=== PATIENT | female | born 1945 | race Caucasian/White ===

== ENCOUNTER 2023-10-07 14:48 | Emergency (ER) | payer MEDICARE ==
[~2023-10-07] VITALS: Ht 157.5 cm; Wt 72.6 kg
[~2023-10-07 14:48] MED LIST: ACIDOPHILUS PR1 EACH PO; AMLO5 PO; ARTHRITIS PAIN650 MG PO; ASPI81EC PO; ATEN50 PO; Aspir 8181 MG PO; BENA20 PO; CALCA400CH; CALCAVITDA PO; CARV6.25 PO; CHOL10002 PO; CRESTOR PO; Crestor20 MG PO; EVENING PRIMROSE PO; FISH OIL 1,0001 EAC1 PO; FISH1000 PO; FLAX PO; LEVO-T112 MCG PO; LEVSOD112 PO; MEGARED OMEGA-1 EAC1 PO; MULVITMIND PO; Melatonin1 MG/4 ML; Multiple Vitam1 EACH PO; NEXIUM PO; OMEP20ER PO; PANT40 PO; VITAMIN D31000 UNIT PO; ZYRTEC10 M1 PO; [UNRECOGNIZED DRUG - OTHER] PO
[2023-10-07 16:10] LABS: BASOPHILS ABSOLUTE AUTO 0.05 K/mm3 (0.00-0.23); BASOPHILS PERCENT AUTO 1 % (0-2); EOSINOPHILS ABSOLUTE AUTO 0.13 K/mm3 (0.00-0.68); EOSINOPHILS PERCENT AUTO 2 % (0-6); Hematocrit 41.6 % (33.0-51.0); Hemoglobin 13.8 g/dL (11.5-16.0); IMMATURE GRAN ABSOLUTE AUTO 0.01 K/mm3 (0.00-0.10); IMMATURE GRAN PERCENT AUTO 0 % (0-1); LYMPHOCYTES PERCENT AUTO 42 % (21-46); MONOCYTES ABSOLUTE AUTO 0.46 K/mm3 (0.16-1.47); MONOCYTES PERCENT AUTO 9 % (4-13); Mean Corpuscular HGB 29.7 pg (26.0-34.0); Mean Corpuscular HGB Conc 33.2 g/dL (31.5-36.5); Mean Corpuscular Volume 90 fL (80-100); Mean Platelet Volume 9.3 fL (9.1-12.4); NEUTROPHILS ABSOLUTE AUTO 2.47 K/mm3 (1.96-9.15); NEUTROPHILS PERCENT AUTO 46 % (41-73); Platelet Count 253 K/mm3 (150-400); RDW Coefficient Variation 13.1 % (11.7-14.2); RDW Standard Deviation 42.5 fL (35.1-46.3); Red Blood Cell Count 4.64 M/mm3 (3.80-5.20); White Blood Cell Count 5.42 K/mm3 (4.00-11.30)
[2023-10-07 16:38] LABS: Albumin, Blood 3.8 g/dL (3.4-5.0); Bilirubin, Total 0.3 mg/dL (0.1-1.0); Bun/Creatinine Ratio 15.4 (12.0-20.0); Calcium, Blood 8.8 mg/dL (8.5-10.1); Creatinine, Blood 0.84 mg/dL (0.40-1.00); Potassium, Blood 3.9 mmol/L (3.5-5.5); Total Protein, Blood 7.8 g/dL (6.4-8.2)
[2023-10-07 17:25] VITALS: BP 123/62
== END 2023-10-07 17:46 | disposition home or self-care (01) ==
LOC: ER 14:48
PROVIDERS: Physician Assistant
DX: R55 Syncope and collapse (principal); I10 Essential (primary) hypertension; Z87.891 Personal history of nicotine dependence; Z79.899 Other long term (current) drug therapy; Z88.0 Allergy status to penicillin; Z88.2 Allergy status to sulfonamides; Z91.011 Allergy to milk products; Z88.1 Allergy status to other antibiotic agents; Z88.8 Allergy status to other drugs, medicaments and biological substances
CPT/HCPCS: 80053; 85025; 93005; 93010; 99284-25

== ENCOUNTER 2025-06-22 09:56 | Day surgery (SDC) | payer MEDICARE | END 2025-06-22 23:00 | disposition home or self-care (01) | LOC: MOI US 09:56 | DX: C50.511 Malignant neoplasm of lower-outer quadrant of right female breast (principal) | CPT/HCPCS: 19285; 77065; A4648 ==

== ENCOUNTER 2025-06-28 11:32 | Day surgery (SDC) | payer MEDICARE ==
[~2025-06-28 11:32] MED LIST changes: +Bupivacaine 0.5% W/EPI 1:200000 SDV 30 ML Vial ONE
[2025-06-28] MEDS ORDERED: CeFAZolin Sodium 2,000 MG VIAL ONE (12:05)
[2025-06-28] MEDS ORDERED: ZOCOR20 MG PO (12:20)
[2025-06-28] MEDS ORDERED: METF500 PO (12:21)
[2025-06-28] MEDS ORDERED: CRANBERRY (12:23)
[2025-06-28] MEDS ORDERED: VITAMIN D (12:23)
[2025-06-28] MEDS ORDERED: Ondansetron HCl 2 MG / ML 2ML Vial ONE (12:25)
[2025-06-28] MEDS ORDERED: FentaNYL Citrate 50 MCG/ML 2 ML Injection ONE ×2 (12:25→14:14)
[2025-06-28] MEDS ORDERED: Dexamethasone Sod Phos 10 MG/ML 1ML VIAL ONE (12:25)
[2025-06-28] MEDS ORDERED: ePHEDrine Sulfate 50 MG/ML 1ML Injection ONE (13:16)
--- NOTE | 2025-06-28 13:55 | NUR ---
06/28/25 1355 Yojana Lima PER RADIOLOGY, SPECIMEN SENT "OKAY." DR BA AWARE, IMAGES SEEN ON PACS AND VERIFIED BY SURGEON.
[2025-06-28] MEDS ORDERED: Ketorolac Tromethamine 30mg Vial ONE (14:28)
[2025-06-28] MEDS ORDERED: HYDROcodone 5-APAP 325 TAB ONE (15:11)
--- NOTE | 2025-06-28 15:13 | NUR ---
06/28/25 [facility]3 Mulu Herbert 1452: PATIENT REPORTING PAIN, RNS LOOSENED BREAST BINDER AND PT STATES "THAT FEELS MUCH BETTER" SO PATIENT WAS CHANGED INTO LARGER BREAST BINDER. PATIENT ASSISTED INTO CHAIR. 1458: PATIENT ASSISTED TO DRESS, PATIENT MAKING JOKES AND LAUGHING. ICE PACK NEAR OP SITE, PATIENT SUPPLIED COOKIES AND DRINK. TOLERATING PO FLUIDS.
[2025-06-28 16:00] VITALS: BP 138/71
--- NOTE | 2025-06-28 16:08 | NUR ---
06/28/25 1601 Eric Vital PT INITIALLY YELLING, CRYING, AND COMPLAINING OF PAIN IN PACU. PT STILL COMPLAINING OF PAIN UPON TRANSFER TO SDU BUT APPEARING MORE RELAXED, TALKATIVE, AND OCCASIONALLY MAKING JOKES.
== END 2025-06-28 15:58 | disposition home or self-care (01) ==
LOC: ORSCSDS 11:32
PROVIDERS: Surgery
PROC: 0HBT0ZZ Excision of Right Breast, Open Approach (ICD-10-PCS; principal; 2025-06-28 12:45)
PROC: 07B50ZX Excision of Right Axillary Lymphatic, Open Approach, Diagnostic (ICD-10-PCS; principal; 2025-06-28 12:45)
DX: C50.911 Malignant neoplasm of unspecified site of right female breast (principal); D36.0 Benign neoplasm of lymph nodes; Z17.1 Estrogen receptor negative status [ER-]; Z17.22 Progesterone receptor negative status; Z17.32 Human epidermal growth factor receptor 2 negative status; I10 Essential (primary) hypertension; E11.9 Type 2 diabetes mellitus without complications; E66.9 Obesity, unspecified; Z68.34 Body mass index [BMI] 34.0-34.9, adult; E78.5 Hyperlipidemia, unspecified; E07.9 Disorder of thyroid, unspecified; F03.90 Unspecified dementia, unspecified severity, without behavioral disturbance, psychotic disturbance, mood disturbance, and anxiety; Z79.84 Long term (current) use of oral hypoglycemic drugs; Z79.899 Other long term (current) drug therapy
CPT/HCPCS: 38792; 76098; 82947; 88307; 88341; 88342; A9270; A9520; J0690; J1100; J1885; J2405; J2704; J3010; J7120; Q9968

== ENCOUNTER 2025-07-11 09:00 | Day surgery (SDC) | payer MEDICARE ==
[~2025-07-11] VITALS: Ht 154.9 cm; Wt 83.4 kg
[2025-07-11] VITALS (12 sets, daily range): BP systolic 123–147; BP diastolic 60–78
[~2025-07-11 09:00] MED LIST changes: +Alph-E-Mixed400 UNIT; -Bupivacaine 0.5% W/EPI 1:200000 SDV 30 ML Vial ONE; +CRANBERRY450 M1 PO; +DONEPEZIL HCL10 MG PO; +MELO7.5 PO; +METF500 PO; +THERA-D2000 UNIT PO; +ZOCOR20 MG PO
[2025-07-11] MEDS ORDERED: FentaNYL Citrate 50 MCG/ML 2 ML Injection ONE (09:59)
[2025-07-11] MEDS ORDERED: Sugammadex Sodium 200 MG/2ML SDV (100 MG/ML) ONE (10:04)
--- NOTE | 2025-07-11 10:19 | NUR ---
Ambulatory in Day Surgery. History, Chart, Medications and Allergies reviewed before start of procedure. Lungs clear T/O to Auscultation. Patient confirms NPO status and agrees with scheduled surgery. Pre-Op teaching done. Pt verbalizes understanding. Patient States Post-Procedure ride home has been arranged. Patient reports completing Chlorhexadine shower X2 prior to admission to hospital. Hx dementia. Pt aggitated at times. Spouse at bedside for hx info.
[2025-07-11] MEDS ORDERED: Cefazolin 2000MG/Dextrose,ISO 50 ML IV PRN (10:25)
[2025-07-11] MEDS ORDERED: Bupivacaine 0.5% HCl 5 MG/ML 30MLVIAL ONE (10:25)
[2025-07-11] MEDS ORDERED: CeFAZolin Sodium 2,000 MG in NS 100 ML IV SCH (10:30)
[2025-07-11] MEDS ORDERED: Bupivacaine 0.5% W/EPI 1:200000 SDV 30 ML Vial ONE (10:41)
[2025-07-11] MEDS ORDERED: HydrALAZINE HCl 20 MG / ML 1ML Vial IV PRN (10:45)
[2025-07-11] MEDS ORDERED: FentaNYL Citrate 50 MCG/ML 2 ML Injection IV PRN ×2 (10:45)
[2025-07-11] MEDS ORDERED: HYDROmorphone HCl/Pf 1MG SYR IV PRN ×2 (10:50)
[2025-07-11] MEDS ORDERED: Ondansetron HCl 2 MG / ML 2ML Vial IV PRN (10:50)
[2025-07-11] MEDS ORDERED: Albuterol 2.5 MG/3 ML VIAL INH PRN (10:50)
[2025-07-11] MEDS ORDERED: ePHEDrine Sulfate 50 MG/ML 1ML Injection ONE (10:58)
[2025-07-11] MEDS ORDERED: Dexamethasone Sod Phos 10 MG/ML 1ML VIAL IV ONE (11:34)
[2025-07-11] MEDS ORDERED: Ondansetron HCl 2 MG / ML 2ML Vial IV ONE (11:34)
--- NOTE | 2025-07-11 13:29 | NUR ---
DISCHARGE NOTE PT A&OX4, BREATHING RA, TOLERATING PO INTAKE, NO COMPLAINTS. PT HAS POOR MEMORY BUT ABLE TO COMMUNICATE NEEDS. AT BEDSIDE. PT AMBULATED TO BR C WALKER AND VOIDED. PT DRESSED WITH ASSISTANCE. Discharge instructions reviewed with patient. Patient verbalizes understanding. Copy given to patient to take home. Dressing to procedure site clean, dry, intact with no visible drainage, swelling, erythema or bruising noted. BREAST BINDER IN PLACE. Discharged via wheelchair to private car for ride home.
== END 2025-07-11 13:20 | disposition home or self-care (01) ==
LOC: ORSCMMR 09:00 → ORD 10:15 → ORSCMMR 13:20
PROVIDERS: Surgery
PROC: 0HBT0ZZ Excision of Right Breast, Open Approach (ICD-10-PCS; principal; 2025-07-11 10:15)
DX: C50.511 Malignant neoplasm of lower-outer quadrant of right female breast (principal); Z17.1 Estrogen receptor negative status [ER-]; Z17.22 Progesterone receptor negative status; Z17.32 Human epidermal growth factor receptor 2 negative status; F03.90 Unspecified dementia, unspecified severity, without behavioral disturbance, psychotic disturbance, mood disturbance, and anxiety; I10 Essential (primary) hypertension; E78.5 Hyperlipidemia, unspecified; E11.9 Type 2 diabetes mellitus without complications; E03.9 Hypothyroidism, unspecified; Z79.84 Long term (current) use of oral hypoglycemic drugs; Z79.899 Other long term (current) drug therapy
CPT/HCPCS: 82947; 88307; J0690; J1100; J2405; J2704; J3010; J7120